=== PATIENT | female | born 1950 | race Caucasian/White ===

== ENCOUNTER → 2024-05-12 10:58 | Outpatient (BNVA) | payer MEDICARE, SELFPAY | PROVIDERS: PCP Family Medicine; Visit Provider Family Medicine | DX: Z00.00 Encounter for general adult medical examination without abnormal findings (principal); E60 Dietary zinc deficiency; Z13.6 Encounter for screening for cardiovascular disorders; L65.9 Nonscarring hair loss, unspecified | CPT/HCPCS: 80053; 80061; 82607; 85025 ==